=== PATIENT | male | born 1980 | race Hispanic/Latino ===

== ENCOUNTER 2017-09-26 01:51 | Emergency (ER) | payer SELFPAY ==
[2017-09-26] MEDS ORDERED: Sodium Chloride 0.9% 1,000 ML ONE (02:02)
[2017-09-26] MEDS ORDERED: DiphenhydrAMINE 50 mg/ml Inj ONE (02:08)
[2017-09-26] MEDS: Sodium Chloride 0.9% 1,000 ML IV ONE (02:15)
[2017-09-26] MEDS: DiphenhydrAMINE 50 mg/ml Inj IVP STA (02:16)
[2017-09-26 03:30] VITALS: RESP 18
--- NOTE | 2017-09-26 04:22 | C.PDOC ---
History Of Present Illness 36 y/o male presents to ED for developing an itchy, diffused rash throughout his body after he had a buckwheat tonight. Denies chest pain, SOB, and fever. Time Seen by Provider: 09/26/17 02:04 Chief Complaint (Nursing): Allergic Reaction History Per: Patient History/Exam Limitations: no limitations Onset/Duration Of Symptoms: Hrs Current Symptoms Are (Timing): Still Present Possible Cause: Food Associated Symptoms: Skin Rash, Itching Home/EMS Treatment: None Recent travel outside of the [place]: No Past Medical History Reviewed: Historical Data, Nursing Documentation, Vital Signs Vital Signs: Last Vital Signs Temp 98.4 F 09/26/17 04:37 Pulse 82 09/26/17 04:37 Resp 18 09/26/17 04:37 BP 116/80 09/26/17 04:37 Pulse Ox 98 09/26/17 06:53 - Medical History PMH: No Chronic Diseases Surgical History: No Surg Hx Family History: States: No Known Family Hx - Social History Hx Alcohol Use: No Hx Substance Use: No - Immunization History Hx Tetanus Toxoid Vaccination: Yes Hx Influenza Vaccination: Yes Hx Pneumococcal Vaccination: Yes Review Of Systems Constitutional: Negative for: Fever, Chills Cardiovascular: Negative for: Chest Pain Respiratory: Negative for: Shortness of Breath Gastrointestinal: Negative for: Nausea, Vomiting, Abdominal Pain, Diarrhea Skin: Positive for: Rash Neurological: Negative for: Weakness, Numbness Physical Exam - Physical Exam Appears: Non-toxic, No Acute Distress Skin: Warm, Dry, Rash (Bilaterally on face, trunk, and arms; no swelling ) Head: Atraumatic, Normacephalic Eye(s): bilateral: Normal Inspection, PERRL, EOMI Nose: Normal, No Discharge Oral Mucosa: Moist Tongue: Normal Appearing, No Swelling Lips: Normal Appearing, No Swelling Throat: Normal, No Erythema, No Exudate, No Drooling, No Mass Neck: Normal ROM, Supple Chest: Symmetrical, No Tenderness Cardiovascular: Rhythm Regular, No Murmur Respiratory: Normal Breath Sounds, No Decreased Breath Sounds, No Rales, No Rhonchi, No Wheezing Gastrointestinal/Abdominal: Soft, No Tenderness, No Distention Extremity: Normal ROM, No Deformity Extremity: Bilateral: Atraumatic, Normal Color And Temperature, Normal ROM Pulses: Left Radial: Normal, Right Radial: Normal Neurological/Psych: Oriented x3, Normal Speech, Other (No focal deficits ) Gait: Steady ED Course And Treatment O2 Sat by Pulse Oximetry: 98 (RA) Pulse Ox Interpretation: Normal Medical Decision Making Medical Decision Making: Administered Pepcid, Benadryl, Zofran, SOLU-Medrol, and IV fluids. On re-exam, the patient reports improvement of symptoms. Lungs are CTA, heart is RRR, abdomen is soft, non-tender and the patient is tolerating PO well. Follow up with the medical doctor within 1-2 days. Return if worsened. Disposition - Disposition Referrals: [facility] [Outside] Disposition: HOME/ ROUTINE Disposition Time: 04:17 Condition: GOOD Additional Instructions: Follow up with the medical doctor within 1-3 days. return if worsened. Prescriptions: DiphenhydrAMINE [Benadryl] 25 mg PO QID #28 cap Epinephrine HCl [Epi Pen Jr] 0.15 mg IJ ONCE PRN #1 kit PRN Reason: Anaphylaxis Famotidine [Pepcid] 20 mg PO BID #20 tab predniSONE [Prednisone] 20 mg PO BID #10 tab Instructions: Anaphylaxis Forms: [employer] (Kinyarwanda) - Clinical Impression Clinical Impression: Allergic reaction - PA / SENIOR BIOSTATISTICIAN / Resident Statement MD/DO has reviewed & agrees with the documentation as recorded. - Scribe Statement The provider has reviewed the documentation as recorded by the Blade Birch All medical record entries made by the Blade were at my direction and personally dictated by me. I have reviewed the chart and agree that the record accurately reflects my personal performance of the history, physical exam, medical decision making, and the department course for this patient. I have also personally directed, reviewed, and agree with the discharge instructions and disposition.
[2017-09-26 04:38] VITALS: BP 116/80; PULSE 82; TEMP 98.4
[2017-09-26 04:46] VITALS: O2SAT 98
== END 2017-09-26 04:38 | disposition home or self-care (01) ==
LOC: C.ER 01:51
DX: T78.49XA Other allergy, initial encounter (principal); X58.XXXA Exposure to other specified factors, initial encounter
CPT/HCPCS: 96361; 96374; 96375; 99285; J1200; J2930; J7030